=== PATIENT | female | born 1990 | race Caucasian/White ===

== ENCOUNTER 2016-11-04 21:27 | Emergency (ER) | payer SELFPAY ==
[~2016-11-04] VITALS: Wt 83.0 kg
[~2016-11-04 21:27] MED LIST: NAPR-260 PO
== END 2016-11-05 02:28 | disposition left against medical advice (07) ==
LOC: WCC 21:27
DX: Z53.21 Procedure and treatment not carried out due to patient leaving prior to being seen by health care provider (principal)

== ENCOUNTER 2017-02-01 09:53 | Emergency (ER) | payer MEDICAID ==
[~2017-02-01] VITALS: Wt 85.0 kg
[2017-02-01] MEDS ORDERED: KETOROLAC 30 MG INJ IV STA (10:33)
[2017-02-01] MEDS ORDERED: FAMOTIDINE 20 MG TAB PO STA (10:33)
[2017-02-01] MEDS ORDERED: ONDANSETRON 4 MG INJ IV STA (10:33)
[2017-02-01] MEDS ORDERED: SOD CHLORIDE 0.9% 1,000 ML IV STA (10:33)
[2017-02-01 11:08] LABS: BASOPHILS % 0.3 % (0.0-2.0); EOSINOPHILS # 0.1 10^3/ul (0.0-0.5); EOSINOPHILS % 0.6 % (0.0-7.0); HEMATOCRIT 37.1 % (37.0-47.0); HEMOGLOBIN 12.3 g/dl (12.0-16.0); LYMPHOCYTES # 2.6 10^3/ul (0.8-2.9); LYMPHOCYTES % 33.9 % (15.0-51.0); MEAN CORPUSCULAR HEMOGLOBIN 27.5 pg (29.0-33.0); MEAN CORPUSCULAR HGB CONC 33.2 g/dl (32.0-37.0); MEAN PLATELET VOLUME 12.3 fl (7.4-10.4); MONOCYTE # 0.5 10^3/ul (0.3-0.9); MONOCYTES % 6.9 % (0.0-11.0); NEUTROPHILS % 58.2 % (39.0-77.0); PLATELET COUNT 233 10^3/UL (140-415); RED BLOOD COUNT 4.47 10^6/ul (4.20-5.40); RED CELL DISTRIBUTION WIDTH 14.3 % (11.5-14.5); WHITE BLOOD COUNT 7.7 10^3/ul (4.8-10.8)
[2017-02-01 11:24] LABS: ALBUMIN/GLOBULIN RATIO 1.35; BILIRUBIN,INDIRECT 0.4 mg/dl (0-1.1); BILIRUBIN,TOTAL 0.4 mg/dl (0.2-1.3); CREATININE 0.6 mg/dl (0.44-1.00); POTASSIUM 3.7 mmol/L (3.5-5.1)
[2017-02-01 11:26] LABS: ADD UMIC NO; UR ASCORBIC ACID NEGATIVE (NEGATIVE); UR BILIRUBIN (Dip) NEGATIVE (NEGATIVE); UR BLOOD (Dip) NEGATIVE (NEGATIVE); UR CLARITY SLIGHTLY CLOUDY (CLEAR); UR COLOR YELLOW (YELLOW); UR GLUCOSE (Dip) NEGATIVE (NEGATIVE); UR KETONES (Dip) NEGATIVE (NEGATIVE); UR LEUKOCYTE ESTERASE (Dip) NEGATIVE Leu/ul (NEGATIVE); UR MUCUS FEW /HPF (NONE SEEN); UR NITRITE (Dip) NEGATIVE (NEGATIVE); UR RBC 0 /HPF (0-5); UR SPECIFIC GRAVITY (Dip) 1.027 (1.003-1.030); UR SQUAMOUS EPITHELIAL CELL MODERATE /HPF (FEW); UR TOTAL PROTEIN (Dip) NEGATIVE (NEGATIVE); UR UROBILINOGEN (Dip) NEGATIVE (NEGATIVE)
[2017-02-01] MEDS ORDERED: morphine 4 MG/ML VIAL IV STA (11:35)
--- NOTE | 2017-02-01 11:52 | RADRPT ---
PROCEDURE: CT Abdomen and Pelvis without contrast CLINICAL INDICATION: Abdominal pain TECHNIQUE: Transaxial images were obtained through the abdomen and pelvis on a multi-slice scanner without the intravenous contrast administration. No oral contrast had previously been given. Sagit hazel and coronal re-formations were subsequently reconstructed. One or more of the following dose reduction techniques were used: - Automated exposure control. - Adjustment of the mA and/or kV according to patient size. - Use of iterative reconstruction technique. Radiation dose: CTDIvol = 47.47 mGy; DLP = 671.18 mGy-cm. COMPARISON: Comparison previous pelvic sonogram done earlier on the same date. The previous sonogram demonstrated a 1.8 cm left corpus luteum cyst and mild thickening of the endom etrial cavity to 1.3 cm. FINDINGS: Lung bases: The visualized lung bases appear unremarkable. Liver: Normal in size and in attenuation. There is no focal lesion. Gallbladder: The wall is not thickened. No radiopaque stones are identified. Bile ducts: The intra and extrahepatic bile ducts are normal in caliber. Pancreas: Appears normal with no mass or inflammation evident. Spleen: Normal in size with no focal lesion. Adrenals: Normal with no mass identified. Kidneys, ureters and bladder: The kidneys are normal in size and there is no mass, pathological calc ification, or hydronephrosis evident. There is no perinephric stranding. The ureters are normal in c aliber and no ureteroliths are identified. The bladder is poorly distended. Reproductive organs: Unremarkable. Stomach and bowel: The stomach and bowel appear unremarkable without evidence of bowel obstruction o r inflammation. Appendix: The vermiform appendix is mildly prominent measuring 7 mm in cross diameter, but there is no significant stranding in the adjacent fat. Peritoneum: No free intraperitoneal fluid or air is identified. Aorta: Normal in caliber with no aneurysmal dilatation. IVC: Unremarkable. Lymph nodes: A few small shotty with retroperitoneal nodes are evident. Osseous structures: The osseous elements appear intact. IMPRESSION: 1. The vermiform appendix is mildly prominent measuring 7 mm in diameter. There is no significant stranding in the adjacent fat. Clinical correlation is indicated to distinguish between a noninflam ed slightly prominent vermiform appendix versus early appendicitis. 2. There is no evidence of bowel obstruction or inflammation and there is no free intraperitoneal f luid or air. 3. Otherwise, unremarkable non-enhanced CT scan of the abdomen and pelvis. Findings of mildly prominent vermiform appendix without definite inflammation were telephoned by Delmy Morales MD to AMIRA Weston on 02/01/2017 and 1143 hours. Physician Ren Date Time Electronically viewed and signed by Brittany Morales Physician on 02/01/2017 11:51 RH/
[2017-02-01 11:53] LABS: ALBUMIN 4.6 g/dl (3.3-4.9)
--- NOTE | 2017-02-01 11:58 | RADRPT ---
PROCEDURE: US Pelvis Non-OB CLINICAL INDICATION: Left-sided pelvic pain TECHNIQUE: Images were taken during real time trans pelvic and endovaginal interrogation. Color-fl ow and Doppler interrogation of the ovaries was performed. COMPARISON: None FINDINGS: Uterus: appears normal in size measuring 7.4 cm in sagittal diameter and 4.8 x 4.2 cm in cross diam eter.. The endometrial stripe measures 1.3 cm. Ovaries: The right ovary measures 3.1 x 1.7 x 1.4 cm and appears unremarkable. The left ovary measures 3.6 x 1.9 x 1.8 cm and a 1.8 cm in diameter corpus luteum cyst is seen withi n the left ovary. Each ovary demonstrates normal vascular flow on Doppler. Adnexa: No adnexal mass is identified. Free intraperitoneal fluid: None visualized. IMPRESSION: 1. Normal sized uterus with a slightly thickened 1.3 cm endometrial stripe. 2. 1.8 cm left ovarian corpus luteum cyst. The right ovary appeared normal and normal vascular cande w was demonstrated in each ovary. 3. No adnexal mass or free fluid is identified. Findings were telephoned by Gio Morales MD to AMIRA Weston on 02/01/2017 at 11:40 hour. Physician Ren Date Time Electronically viewed and signed by Physician Ren on 02/01/2017 11:58 /
[2017-02-01] MEDS ORDERED: ONDA-43 PO (12:31)
[2017-02-01] MEDS ORDERED: DICY10CA60 PO (12:32)
[2017-02-01] MEDS ORDERED: HYDR-906 PO (12:32)
[2017-02-01 12:46] VITALS: BP 127/80; PULSE 78; RESP 20; TEMP 98.3
--- NOTE | 2017-02-01 12:47 | ERD ---
ER Documentation Chief Complaint Date/Time DATE: 02/01/17 TIME: 12:39 Chief Complaint ABD/BACK PAIN, WORSE ON LEFT SIDE, N/V HPI This is a 26-year-old female presents to the ER with a 2 week history of left lower quadrant pain that radiates into the left side of her pelvis. Patient developed nausea and nonbilious nonbloody vomiting this morning. Patient is now complaining of epigastric pain as well. Epigastric pain is burning in quality and she feels burning sensation in her throat. Patient states that when this all started as she was constipated, however she began to drink a lot of water in her bowel movements improved. She does not have any diarrhea. She does not have any fevers or chills. Patient states that whenever she pushes down her left side the pain does radiate to her right side. Patient denies any urinary frequency or dysuria. She denies any hematuria. She denies any vaginal discharge. Patient denies drinking or smoking. ROS 12 point review of systems was done, all negative except per HPI. Medications Home Meds Active Scripts Hydrocodone/Acetaminophen (Beth[place] 5-325 Tablet) 1 Each Tablet, 1 TAB PO Q6H Y for PAIN, #15 TAB Prov:JUAN RUIZ 02/01/17 Dicyclomine Hcl* (Bentyl*) 10 Mg Capsule, 10 MG PO QID for 5 Days, CAP Prov:JUAN RUIZ 02/01/17 Ondansetron Hcl* (Zofran*) 4 Mg Tab, 4 MG PO Q4H Y for NAUSEA AND OR VOMITING, # 15 TAB Prov:JUAN RUIZ 02/01/17 Naproxen* (Naprosyn*) 500 Mg Tablet, 500 MG PO BID Y for PAIN AND/OR INFLAMMATION, #30 TAB Prov:RYAN YOUNG PA-C 04/20/16 Allergies Allergies: Coded Allergies: No Known Allergy (Verified , 04/20/16) PMhx/Soc Medical and Surgical Hx: pt denies Surgical Hx History of Surgery: No Anesthesia Reaction: No Hx Neurological Disorder: No Hx Respiratory Disorders: No Hx Cardiac Disorders: Yes (htn) Hx Psychiatric Problems: No Hx Miscellaneous Medical Probl: No Hx Alcohol Use: No Hx Substance Use: No Hx Tobacco Use: No Smoking Status: Never smoker Physical Exam Vitals Vital Signs Date Time Temp Pulse Resp B/P Pulse Ox O2 Delivery O2 Flow Rate FiO2 02/01/17 09:56 97.6 82 17 134/90 99 Physical Exam GENERAL: The patient is well developed and appropriate for usual state of health , in no apparent distress. HEENT: Atraumatic. CHEST: Clear to auscultation bilaterally. There are no rales, wheezes or rhonchi. HEART: Regular rate and rhythm. No murmurs, clicks, rubs or gallops. ABDOMEN: Soft and nondistended, patient is tender to palpation in the left lower quadrant, epigastric area, right upper quadrant, and has referred pain to the right side when pushing down on the left side. Good bowel sounds. No rebound or guarding. No gross peritonitis. No gross organomegaly or masses. No Gallegos sign or McBurney point tenderness. BACK: No midline or flank tenderness. NEURO: Alert and oriented. Result Diagram: 02/01/17 1040 02/01/17 1040 Results 24 hrs Laboratory Tests Test 02/01/17 10:30 02/01/17 10:40 Urine Color YELLOW Urine Clarity SLIGHTLY CLOUDY Urine pH 5.0 Urine Specific [place] 1.027 Urine Ketones NEGATIVEmg/dL Urine Nitrite NEGATIVEmg/dL Urine Bilirubin NEGATIVEmg/dL Urine Urobilinogen NEGATIVEmg/dL Urine Leukocyte Esterase NEGATIVELeu/ul Urine Microscopic RBC 0/HPF Urine Microscopic WBC 4/HPF Urine Squamous Epithelial Cells MODERATE/HPF Urine Mucus FEW/HPF Urine Hemoglobin NEGATIVEmg/dL Urine Glucose NEGATIVEmg/dL Urine Total Protein NEGATIVEmg/dl White Blood Count 7.710^3/ul Red Blood Count 4.4710^6/ul Hemoglobin 12.3g/dl Hematocrit 37.1% Mean Corpuscular Volume 83.0fl Mean Corpuscular Hemoglobin 27.5pg Mean Corpuscular Hemoglobin Concent 33.2g/dl Red Cell Distribution Width 14.3% Platelet Count 86055^3/UL Mean Platelet Volume 12.3fl Neutrophils % 58.2% Lymphocytes % 33.9% Monocytes % 6.9% Eosinophils % 0.6% Basophils % 0.3% Nucleated Red Blood Cells % 0.0/100WBC Neutrophils # (Manual) 510^3/ul Lymphocytes # 2.610^3/ul Monocytes # 0.510^3/ul Eosinophils # 0.110^3/ul Basophils # 0.010^3/ul Nucleated Red Blood Cells # 0.010^3/ul Sodium Level 139mmol/L Potassium Level 3.7mmol/L Chloride Level 101mmol/L Carbon Dioxide Level 26mmol/L Anion Gap 16 Blood Urea Nitrogen 14mg/dl Creatinine 0.60mg/dl Glucose Level 89mg/dl Calcium Level 9.0mg/dl Total Bilirubin 0.4mg/dl Direct Bilirubin 0.00mg/dl Indirect Bilirubin 0.4mg/dl Aspartate Amino Transf (AST/SGOT) 20IU/L Alanine Aminotransferase (ALT/SGPT) 30IU/L Alkaline Phosphatase 89IU/L Total Protein 8.0g/dl Albumin 4.6g/dl Globulin 3.40g/dl Albumin/Globulin Ratio 1.35 Lipase 47U/L Current Medications Medications (Trade) Dose Ordered Sig/Lyric Route PRN Reason Start Time Stop Time Status Last Admin Dose Admin Sodium Chloride (NS) 1,000 ml @ 1,000 mls/hr Q1H STAT IV 02/01/17 10:33 02/01/17 11:32 DC 02/01/17 11:00 Ondansetron HCl (Zofran Inj) 4 mg ONCE STAT IV 02/01/17 10:33 02/01/17 10:35 DC 02/01/17 11:00 Famotidine (Pepcid) 20 mg ONCE STAT PO 02/01/17 10:33 02/01/17 10:35 DC 02/01/17 11:01 Ketorolac Tromethamine (Toradol) 30 mg ONCE STAT IV 02/01/17 10:33 02/01/17 10:35 DC 02/01/17 11:00 Morphine Sulfate (morphine) 4 mg ONCE STAT IV 02/01/17 11:35 02/01/17 11:36 DC 02/01/17 11:59 Procedures/MDM Differential diagnosis includes but is not limited to appendicitis, hernia, UTI , constipation, ectopic , ovarian torsion, PID, Mittelschmerz, fibroid , diverticulitis, intra-abdominal abscess, tubo-ovarian abscess. This is a 26- year-old female presents to the ER with generalized abdominal pain mostly in the left lower quadrant and epigastric area. Patient was examined by myself and by my supervising physician Dr. Scott, as radiologist did mention a slightly inflamed appendix. Patient is extremely well-appearing and does not have right lower quadrant pain and physical examination. She is afebrile and does not have any evidence of leukocytosis. Patient will be sent home with pain control and Zofran. She was advised to return to ER in 24 hours for reexamination or sooner if symptoms worsen. My supervising physician Dr. Scott guided my medical decision making and agrees with my medical decision making. I shared my medical decision making with the patient she understands and agrees with plan. Departure Diagnosis: Primary Impression: Abdominal pain Condition: Stable Patient Instructions: Abdominal Pain Additional Instructions: Regrese a estas instalaciones MAANA para repetirle el examen.Regrese antes si hendrix condicin se empeora. JUAN RUIZ Feb 01, 2017 12:47
== END 2017-02-01 12:47 | disposition home or self-care (01) ==
LOC: FTE 09:53
DX: R10.32 Left lower quadrant pain (principal); I10 Essential (primary) hypertension; R11.2 Nausea with vomiting, unspecified; R10.2 Pelvic and perineal pain
CPT/HCPCS: 36415; 74176; 76830; 76856; 80053; 81001; 83690; 85025; 96374; 96375; J1885; J2270; J2405; J7030; Z7502; Z7610; 81003

== ENCOUNTER 2017-02-02 12:29 | Emergency (ER) | payer MEDICAID ==
[~2017-02-02] VITALS: Ht 165.1 cm; Wt 84.0 kg
[~2017-02-02 12:29] MED LIST changes: +DICY10CA60 PO; +HYDR-906 PO; +ONDA-43 PO
[2017-02-02 12:35] VITALS: Ht 165.1 cm; Wt 84.0 kg
[2017-02-02] MEDS ORDERED: KETOROLAC 30 MG INJ IV STA (13:24)
[2017-02-02] MEDS ORDERED: ONDANSETRON 4 MG INJ IV STA (13:24)
--- NOTE | 2017-02-02 13:24 | ERD ---
ER Documentation Chief Complaint Date/Time DATE: 02/02/17 TIME: 13:15 Chief Complaint rlq abdominal pain,unable to have bm for 2 days, was here yesterday r/o api (GEENA HAYES) Chief Complaint This 26-year-old female presents to emergency department for reevaluation of right abdominal pain. Patient was seen and treated here yesterday for rule out appendicitis instructed to return to emergency department for repeat examination if symptoms continue after 8 hours. (MOE MA) HPI 26-year-old female presents emergency department for right lower abdominal pain. Was here yesterday for the same symptoms, CT scan without contrast was done, pelvic ultrasound was done, was discharged home with Zachary Crowder Norco. Patient stated that her symptoms is not relieved by his medications. Vomited 6 times with greenish vomitus for the past 24 hours. Last bowel movement was 2 days ago. Denies headache, loss of consciousness, dizziness, blurry vision, changes in vision, photophobia, facial pain, ear pain, throat pain, difficulty swallowing, neck pain, shoulder pain, chest pain, cough, hemoptysis, back pain, loss of appetite, hematochezia, diarrhea, constipation, urinary symptoms, , the possibility of being , bladder and bowel incontinences, extremity weakness, extremity tenderness, numbness or tingling sensation, difficulty walking, recent travel, recent exposure to illness, recent antibiotic use in the last 3 months, fever, chills. No known allergies. No past medical history. No surgical history. Medications: As stated above. Social: Not working this time. Denies smoking, use of alcohol, use of illegal drugs. LMP: January 08, 2017. A0. (GEENA HAYES) ROS All systems reviewed and are negative except as per history of present illness. (GEENA HAYES) atient Name: Aileen Álvarez Unit Number: [id number] Date of : 1990 Patient Status: Registered Emergency Room Attending Doctor: Bacilio Scott DO ER Documentation ER Documentation Chief Complaint Date/Time DATE: 02/02/17 TIME: 13:15 Chief Complaint rlq abdominal pain,unable to have bm for 2 days, was here yesterday r/o api HPI 26-year-old female presents emergency department for right lower abdominal pain. Was here yesterday for the same symptoms, CT scan without contrast was done, pelvic ultrasound was done, was discharged home with Zofran, Bentyl, [place]. Patient stated that her symptoms is not relieved by his medications. Vomited 6 times with greenish vomitus for the past 24 hours. Last bowel movement was 2 days ago. Denies headache, loss of consciousness, dizziness, blurry vision, changes in vision, photophobia, facial pain, ear pain, throat pain, difficulty swallowing, neck pain, shoulder pain, chest pain, cough, hemoptysis, back pain, loss of appetite, hematochezia, diarrhea, constipation, urinary symptoms, , the possibility of being , bladder and bowel incontinences, extremity weakness, extremity tenderness, numbness or tingling sensation, difficulty walking, recent travel, recent exposure to illness, recent antibiotic use in the last 3 months, fever, chills. No known allergies. No past medical history. No surgical history. Medications: As stated above. Social: Not working this time. Denies smoking, use of alcohol, use of illegal drugs. LMP: January 08, 2017. A0. ROS All systems reviewed and are negative except as per history of present illness. Medications Home Meds Active Scripts Hydrocodone/Acetaminophen ([place] 5-325 Tablet) 1 Each Tablet, 1 TAB PO Q6H Y for PAIN, #15 TAB Prov:SARAJUAN VERA C 02/01/17 Dicyclomine Hcl* (Bentyl*) 10 Mg Capsule, 10 MG PO QID for 5 Days, CAP Prov:SARAJUAN C 02/01/17 Ondansetron Hcl* (Zofran*) 4 Mg Tab, 4 MG PO Q4H Y for NAUSEA AND OR VOMITING, # 15 TAB Prov:SARAJUAN C 02/01/17 Naproxen* (Naprosyn*) 500 Mg Tablet, 500 MG PO BID Y for PAIN AND/OR INFLAMMATION, #30 TAB Prov:RYAN YOUNG PA-C 04/20/16 Allergies Allergies: Coded Allergies: No Known Allergy (Verified , 04/20/16) PMhx/Soc History of Surgery: No Anesthesia Reaction: No Hx Neurological Disorder: No Hx Respiratory Disorders: No Hx Cardiac Disorders: Yes (HTN) Hx Psychiatric Problems: No Hx Miscellaneous Medical Probl: No Hx Alcohol Use: No Hx Substance Use: No Hx Tobacco Use: No Smoking Status: Never smoker Physical Exam Vitals Vital Signs Date Time Temp Pulse Resp B/P Pulse Ox O2 Delivery O2 Flow Rate FiO2 02/02/17 12:35 98.7 100 18 152/96 99 Physical Exam CONSTITUTIONAL: Well-appearing; well-nourished; in no apparent distress. HEAD: Normocephalic; atraumatic. EYES: Conjunctiva clear, sclera non-icteric, EOM intact. PERRL Ears: Hearing intact. EACs clear, TMs non-bulging, non-inflamed, translucent & mobile, ossicles normal appearance, No obstructions, no erythema, no discharges Nose: No obstructions. No polyps. No external lesions. Mucosa non-inflamed. No external lesions, septum and turbinates normal. No rhinorrhea. No discharges. Frontal sinus is non-tender to palpation. Maxillary sinus is non-tender to palpation. MOUTH: Moist mucous membranes, no lesion, no obstructions, no vesicles, no thrush, patent airway Throat: Uvula in midline. Right tonsil is +1 with no erythema, no exudate. Left tonsil is +1 with no erythema, no exudate. Tolerating secretions well. Good gag reflex. Patent airway. Neck: Supple, without lesions, bruits, or adenopathy. No mass. Thyroid non- enlarged and non-tender to palpation. CHEST: Symmetrical chest. Respirations even and not labored. No retractions noted. CARDIOVASCULAR: Normal S1, S2. RRR. No murmurs, gallops. RESPIRATORY: Normal chest excursion with respiration; breath sounds clear and equal bilaterally; no wheezes, rhonchi, or rales. Breathing even and unlabored. Speaking in clear, full, and complete sentences w/ ease. ABDOMEN: Normal bowel sounds normal. Soft, round, non-distended, non-guarding, no rebound, no organomegaly, no masses, no pulsating abdominal mass. Has right lower abdominal tenderness on light and deep palpation. Positive and psoas sign. Negative on Rovsing sign. Positive Anay sign. Unable to jump due to right-sided abdominal pain. No hernia. No peritoneal signs. : No CVA tenderness. BACK: Symmetrical shoulder. Spine is midline without deformity, tenderness. No evidence of trauma or deformity. PELVIS: Stable pelvis. No evidence of trauma or deformity. MUSCULOSKELETAL: Normal gait and station. No misalignment, asymmetry, crepitation, defects, tenderness, masses, effusions, decreased range of motion, instability, atrophy or abnormal strength or tone in the head, neck, spine, ribs , pelvis or extremities. No calf tenderness. NEUROVASCULAR: Distal pulses are present. Pedal pulse are present, equal, and normal. Capillary refills are < 2 seconds. NEUROLOGIC: Alert and oriented x4. Speaks full and clear sentences. Cranial Nerves II-XII normal. Sensation to pain, touch, and proprioception normal. Grossly unremarkable. No neurologic deficits. Romberg test is negative. PSYCHOLOGICAL: The patients mood and manner are appropriate. No hallucinations , delusions. Not SI. Not HI. Has the capacity to decide for self SKIN: Normal for age and ethnicity; warm; dry; good turgor; no apparent lesions or exudates. No rashes, hives, discoloration. Intact. Result Diagram: 02/02/17 1445 02/02/17 1445 Results 24 hrs Laboratory Tests Test 02/02/17 14:45 White Blood Count 6.510^3/ul Red Blood Count 4.3810^6/ul Hemoglobin 11.7g/dl Hematocrit 36.6% Mean Corpuscular Volume 83.6fl Mean Corpuscular Hemoglobin 26.7pg Mean Corpuscular Hemoglobin Concent 32.0g/dl Red Cell Distribution Width 14.2% Platelet Count 81033^3/UL Mean Platelet Volume 11.8fl Neutrophils % 62.2% Lymphocytes % 29.9% Monocytes % 6.8% Eosinophils % 0.6% Basophils % 0.2% Nucleated Red Blood Cells % 0.0/100WBC Neutrophils # (Manual) 410^3/ul Lymphocytes # 1.910^3/ul Monocytes # 0.410^3/ul Eosinophils # 0.010^3/ul Basophils # 0.010^3/ul Nucleated Red Blood Cells # 0.010^3/ul Prothrombin Time 13.3Sec Prothrombin Time Ratio 1.0 INR International Normalized Ratio 1.01 Activated Partial Thromboplast Time 30.5Sec Sodium Level 139mmol/L Potassium Level 3.6mmol/L Chloride Level 102mmol/L Carbon Dioxide Level 26mmol/L Anion Gap 15 Blood Urea Nitrogen 8mg/dl Creatinine 0.64mg/dl Glucose Level 79mg/dl Calcium Level 8.9mg/dl Total Bilirubin 0.6mg/dl Direct Bilirubin 0.00mg/dl Indirect Bilirubin 0.6mg/dl Aspartate Amino Transf (AST/SGOT) 21IU/L Alanine Aminotransferase (ALT/SGPT) 29IU/L Alkaline Phosphatase 88IU/L Total Protein 7.7g/dl Albumin 4.5g/dl Globulin 3.20g/dl Albumin/Globulin Ratio 1.40 Amylase Level 60U/L Lipase 38U/L Serum HCG, Qualitative NEGATIVE Current Medications Medications (Trade) Dose Ordered Sig/Lyric Route PRN Reason Start Time Stop Time Status Last Admin Dose Admin Ondansetron HCl (Zofran Inj) 4 mg ONCE STAT IV 02/02/17 13:24 02/02/17 13:29 DC 02/02/17 14:52 Ketorolac Tromethamine 30 mg 30 mg ONCE STAT IV 02/02/17 13:24 02/02/17 13:29 DC 02/02/17 14:52 Sodium Chloride (NS) 500 ml @ 500 mls/hr Q1H ONCE IV 02/02/17 13:30 02/02/17 14:29 DC 02/02/17 14:53 Morphine Sulfate (morphine) 2 mg ONCE ONCE IV 02/02/17 16:00 02/02/17 16:01 DC 02/02/17 16:41 Procedures/MDM Examination: Please see physical examination. Disease process, medical treatment was explained to the patient and family member. They verbalized understanding and agreed with the diagnostic tests, medical treatment, and follow-up care. Radiology: CT of the abdomen and pelvis with IV contrast Impression: Awaiting for results Blood works: Reviewed. POC urine : Urinalysis: Awaiting for results. Treatment: IV insertion. Normal saline 5 cc bolus. Zofran 4 mg IV 1. Toradol 30 mg IV. Consultation: Case was discussed with supervising emergency room physician, Dr. Maxime Dawkins who recommends CT of the abdomen and pelvis with IV contrast and repeat blood works today. 19:36 case was discussed with supervising emergency room physician, Dr. Bacilio Scott who suggested for me to endorse this patient to Annelise Alexander NP. Dr. Bacilio Scott also stated that he will follow-up the result. Differential diagnosis: Appendicitis versus nephrolithiasis versus pyelonephritis versus pancreatitis versus cholecystitis versus liver disease versus ovarian cyst rupture versus ovarian cyst versus pelvic inflammatory disease versus urinary tract infection Medical decision makin-year-old female presents emergency department for right lower abdominal pain. Was here yesterday for the same symptoms, CT scan without contrast was done, pelvic ultrasound was done, was discharged home with Zofran, Bentyl, [place]. Patient stated that her symptoms is not relieved by his medications. Vomited 6 times with greenish vomitus for the past 24 hours. Last bowel movement was 2 days ago. Patient's complaint, patient's history about her complaint, my physical findings, diagnostic test results, reevaluation after my treatment, my discussions with my supervising physician are consistent my final diagnosis of abdominal pain. Will be followed up by Annelise ARAUJO and Dr. Scott. Departure Diagnosis: Primary Impression: Abdominal pain Condition: Stable Copies To: Copies To: GEENA HAYES Feb 02, 2017 13:24 (ANIL,MOE) Medications Home Meds Active Scripts Hydrocodone/Acetaminophen ([place] 5-325 Tablet) 1 Each Tablet, 1 TAB PO Q6H Y for PAIN, #15 TAB Prov:SARACHAGOJUAN C 02/01/17 Dicyclomine Hcl* (Bentyl*) 10 Mg Capsule, 10 MG PO QID for 5 Days, CAP Prov:SARAJUAN C 02/01/17 Ondansetron Hcl* (Zofran*) 4 Mg Tab, 4 MG PO Q4H Y for NAUSEA AND OR VOMITING, # 15 TAB Prov:SARAJUAN C 02/01/17 Naproxen* (Naprosyn*) 500 Mg Tablet, 500 MG PO BID Y for PAIN AND/OR INFLAMMATION, #30 TAB Prov:RYAN YOUNG PA-C 04/20/16 Allergies Allergies: Coded Allergies: No Known Allergy (Verified , 04/20/16) PMhx/Soc History of Surgery: No Anesthesia Reaction: No Hx Neurological Disorder: No Hx Respiratory Disorders: No Hx Cardiac Disorders: Yes (HTN) Hx Psychiatric Problems: No Hx Miscellaneous Medical Probl: No Hx Alcohol Use: No Hx Substance Use: No Hx Tobacco Use: No Smoking Status: Never smoker (PASILABAN,KLAR F) Physical Exam Vitals Vital Signs Date Time Temp Pulse Resp B/P Pulse Ox O2 Delivery O2 Flow Rate FiO2 02/02/17 12:35 98.7 100 18 152/96 99 (ANIL,MOE) Physical Exam CONSTITUTIONAL: Well-appearing; well-nourished; in no apparent distress. HEAD: Normocephalic; atraumatic. EYES: Conjunctiva clear, sclera non-icteric, EOM intact. PERRL Ears: Hearing intact. EACs clear, TMs non-bulging, non-inflamed, translucent & mobile, ossicles normal appearance, No obstructions, no erythema, no discharges Nose: No obstructions. No polyps. No external lesions. Mucosa non-inflamed. No external lesions, septum and turbinates normal. No rhinorrhea. No discharges. Frontal sinus is non-tender to palpation. Maxillary sinus is non-tender to palpation. MOUTH: Moist mucous membranes, no lesion, no obstructions, no vesicles, no thrush, patent airway Throat: Uvula in midline. Right tonsil is +1 with no erythema, no exudate. Left tonsil is +1 with no erythema, no exudate. Tolerating secretions well. Good gag reflex. Patent airway. Neck: Supple, without lesions, bruits, or adenopathy. No mass. Thyroid non- enlarged and non-tender to palpation. CHEST: Symmetrical chest. Respirations even and not labored. No retractions noted. CARDIOVASCULAR: Normal S1, S2. RRR. No murmurs, gallops. RESPIRATORY: Normal chest excursion with respiration; breath sounds clear and equal bilaterally; no wheezes, rhonchi, or rales. Breathing even and unlabored. Speaking in clear, full, and complete sentences w/ ease. ABDOMEN: Normal bowel sounds normal. Soft, round, non-distended, non-guarding, no rebound, no organomegaly, no masses, no pulsating abdominal mass. Has right lower abdominal tenderness on light and deep palpation. Positive and psoas sign. Negative on Rovsing sign. Positive Anay sign. Unable to jump due to right-sided abdominal pain. No hernia. No peritoneal signs. : No CVA tenderness. BACK: Symmetrical shoulder. Spine is midline without deformity, tenderness. No evidence of trauma or deformity. PELVIS: Stable pelvis. No evidence of trauma or deformity. MUSCULOSKELETAL: Normal gait and station. No misalignment, asymmetry, crepitation, defects, tenderness, masses, effusions, decreased range of motion, instability, atrophy or abnormal strength or tone in the head, neck, spine, ribs , pelvis or extremities. No calf tenderness. NEUROVASCULAR: Distal pulses are present. Pedal pulse are present, equal, and normal. Capillary refills are < 2 seconds. NEUROLOGIC: Alert and oriented x4. Speaks full and clear sentences. Cranial Nerves II-XII normal. Sensation to pain, touch, and proprioception normal. Grossly unremarkable. No neurologic deficits. Romberg test is negative. PSYCHOLOGICAL: The patients mood and manner are appropriate. No hallucinations , delusions. Not SI. Not HI. Has the capacity to decide for self SKIN: Normal for age and ethnicity; warm; dry; good turgor; no apparent lesions or exudates. No rashes, hives, discoloration. Intact. (GEENA HAYES) Physical Exam Physical Exam Vitals Vital Signs Date Time Temp Pulse Resp B/P Pulse Ox O2 Delivery O2 Flow Rate FiO2 02/02/17 12:35 98.7 100 18 152/96 99 Physical Exam CONSTITUTIONAL: Well-appearing; well-nourished; in no apparent distress. CHEST: Symmetrical chest. Respirations even and not labored. No retractions noted. CARDIOVASCULAR: Normal S1, S2. RRR. No murmurs, gallops. RESPIRATORY: Normal chest excursion with respiration; breath sounds clear and equal bilaterally; no wheezes, rhonchi, or rales. Breathing even and unlabored. Speaking in clear, full, and complete sentences w/ ease. ABDOMEN: Soft, non-distended, non-guarding, no rebound, no organomegaly, Has right lower abdominal tenderness on light and deep palpation. Positive McBurney 's point tenderness unable to jump due to right-sided abdominal pain. No hernia. No peritoneal signs. : No CVA tenderness. BACK: Symmetrical shoulder. Spine is midline without deformity, tenderness. No evidence of trauma or deformity. NEUROLOGIC: Alert and oriented x4. Speaks full and clear sentences. Cranial Nerves II-XII normal. Sensation to pain, touch, and proprioception normal. Grossly unremarkable. No neurologic deficits. Romberg test is negative. PSYCHOLOGICAL: The patients mood and manner are appropriate. No hallucinations , delusions. Not SI. Not HI. Has the capacity to decide for self (MOE MA) Result Diagram: 02/02/17 1445 02/02/17 1445 Results 24 hrs Laboratory Tests Test 02/02/17 14:45 White Blood Count 6.510^3/ul Red Blood Count 4.3810^6/ul Hemoglobin 11.7g/dl Hematocrit 36.6% Mean Corpuscular Volume 83.6fl Mean Corpuscular Hemoglobin 26.7pg Mean Corpuscular Hemoglobin Concent 32.0g/dl Red Cell Distribution Width 14.2% Platelet Count 59079^3/UL Mean Platelet Volume 11.8fl Neutrophils % 62.2% Lymphocytes % 29.9% Monocytes % 6.8% Eosinophils % 0.6% Basophils % 0.2% Nucleated Red Blood Cells % 0.0/100WBC Neutrophils # (Manual) 410^3/ul Lymphocytes # 1.910^3/ul Monocytes # 0.410^3/ul Eosinophils # 0.010^3/ul Basophils # 0.010^3/ul Nucleated Red Blood Cells # 0.010^3/ul Prothrombin Time 13.3Sec Prothrombin Time Ratio 1.0 INR International Normalized Ratio 1.01 Activated Partial Thromboplast Time 30.5Sec Sodium Level 139mmol/L Potassium Level 3.6mmol/L Chloride Level 102mmol/L Carbon Dioxide Level 26mmol/L Anion Gap 15 Blood Urea Nitrogen 8mg/dl Creatinine 0.64mg/dl Glucose Level 79mg/dl Calcium Level 8.9mg/dl Total Bilirubin 0.6mg/dl Direct Bilirubin 0.00mg/dl Indirect Bilirubin 0.6mg/dl Aspartate Amino Transf (AST/SGOT) 21IU/L Alanine Aminotransferase (ALT/SGPT) 29IU/L Alkaline Phosphatase 88IU/L Total Protein 7.7g/dl Albumin 4.5g/dl Globulin 3.20g/dl Albumin/Globulin Ratio 1.40 Amylase Level 60U/L Lipase 38U/L Serum HCG, Qualitative NEGATIVE Current Medications Medications (Trade) Dose Ordered Sig/Lyric Route PRN Reason Start Time Stop Time Status Last Admin Dose Admin Ondansetron HCl (Zofran Inj) 4 mg ONCE STAT IV 02/02/17 13:24 02/02/17 13:29 DC 02/02/17 14:52 Ketorolac Tromethamine 30 mg 30 mg ONCE STAT IV 02/02/17 13:24 02/02/17 13:29 DC 02/02/17 14:52 Sodium Chloride (NS) 500 ml @ 500 mls/hr Q1H ONCE IV 02/02/17 13:30 02/02/17 14:29 DC 02/02/17 14:53 Morphine Sulfate (morphine) 2 mg ONCE ONCE IV 02/02/17 16:00 02/02/17 16:01 DC 02/02/17 16:41 IV Flush 10 ml 10 ml STK-MED ONCE .ROUTE 02/02/17 21:27 02/02/17 21:28 DC 02/02/17 21:33 Sodium Chloride (NS) 100 ml @ ud STK-MED ONCE .ROUTE 02/02/17 21:27 02/02/17 21:28 DC 02/02/17 21:33 Iohexol (Omnipaque 300mg/ ml) 150 ml STK-MED ONCE .ROUTE 02/02/17 21:27 02/02/17 21:28 DC 02/02/17 21:34 Acetaminophen (Tylenol Tab) 650 mg ONCE ONCE PO 02/02/17 22:30 02/02/17 22:31 DC 02/02/17 22:22 Interpretation text CBC shows no evidence of hemorrhage or infection Chemistry shows no evidence of significant electrolyte abnormalities or renal insufficiency Lipase shows no evidence of acute pancreatitis (MOE MA) Procedures/MDM Examination: Please see physical examination. Disease process, medical treatment was explained to the patient and family member. They verbalized understanding and agreed with the diagnostic tests, medical treatment, and follow-up care. Radiology: CT of the abdomen and pelvis with IV contrast Impression: Awaiting for results Blood works: Reviewed. POC urine : Urinalysis: Awaiting for results. Treatment: IV insertion. Normal saline 5 cc bolus. Zofran 4 mg IV 1. Toradol 30 mg IV. Consultation: Case was discussed with supervising emergency room physician, Dr. Maxime Dawkins who recommends CT of the abdomen and pelvis with IV contrast and repeat blood works today. 19:36 case was discussed with supervising emergency room physician, Dr. Bacilio Scott who suggested for me to endorse this patient to Annelise Alexander NP. Dr. Bacilio Scott also stated that he will follow-up the result. Differential diagnosis: Appendicitis versus nephrolithiasis versus pyelonephritis versus pancreatitis versus cholecystitis versus liver disease versus ovarian cyst rupture versus ovarian cyst versus pelvic inflammatory disease versus urinary tract infection Medical decision makin-year-old female presents emergency department for right lower abdominal pain. Was here yesterday for the same symptoms, CT scan without contrast was done, pelvic ultrasound was done, was discharged home with Zofrmilo, Zachary, [place]. Patient stated that her symptoms is not relieved by his medications. Vomited 6 times with greenish vomitus for the past 24 hours. Last bowel movement was 2 days ago. Patient's complaint, patient's history about her complaint, my physical findings, diagnostic test results, reevaluation after my treatment, my discussions with my supervising physician are consistent my final diagnosis of abdominal pain. Will be followed up by Annelise ARAUJO and Dr. Scott. (GEENA HAYES) This 26-year-old female presents to emergency department for reevaluation of right lower quadrant pain. Patient had if equivocal testing yesterday symptoms suspicious for appendicitis. Normal CAT scan without contrast instructed to return if symptoms worsen. Patient back today for repeat evaluation. Patient has unremarkable lab testing with WBCs negative for acute infection, hemoglobin and hematocrit stable no anemia or acute blood loss. Electrolytes without acute dysfunction. Patient CAT scan with contrast demonstrates compared to prior noncontrast CT from 02/01 2017 the appendix now is normal measuring only 5.5 mm there are no findings to suggest appendicitis. Now demonstrated is a trace amount of fluid within the left adnexa and cul-de-sac complying ovarian follicles or cysts rupture from a small approximately 1 cm hypodense left ovarian lesion. Remainder of examination is unremarkable. This case discussed with supervising physician Dr. Mayers. Patient will be discharged home with Motrin, 7 [place]. Instructions to follow-up with ANESTHESIOLOGIST on Saturday. I feel the patient is stable for discharge at this time. I have discussed results , examination findings, the treatment plan with the patient and family present prior to discharge. Indications for emergent reevaluation, side effects of medication were also discussed. All questions were answered. Patient verbalizes understanding and agrees with plan of care. (MOE MA) Departure Diagnosis: Primary Impression: Ovarian cyst Laterality: left Qualified Code: N83.202 - Cyst of left ovary Condition: Good Patient Instructions: What Are Ovarian Cysts? Referrals: ANESTHESIOLOGIST REFERRAL LIST Additional Instructions: Thank you for for coming to [facility] for your care today. Please ask your nurse or provider if you have questions about your care today and do not leave until all your questions have been answered. Please use any medications given as directed and follow-up with your doctor (or the doctor you were referred to) in the next 2-3 days. If you do not have a primary care doctor you [place] [facility] [place] You may also use motrin and tylenol as needed for fever and/or pain unless instructed otherwise by your provider or nurse. Indications for more urgent follow-up have been discussed, but you may return to the Emergency Department at ANY time for any worrisome or worsening symptoms. If you have abdominal pain, please know that no test or exam you received is perfect and you should follow up within 8 hours for continued pain. If you had any imaging studies today, such as an X-Ray or CT Scan, these studies will be reviewed later by a radiologist. You will be called if there are important findings that were not identified today, so make sure the contact information you provided at registration is correct. If you received any narcotic pain control medicine today, such as Vicodin, Morphine or Dilaudid, your coordination and judgment may be affected for a number of hours. Please do not drive or operate heavy machinery, and you may want someone to assist you at home. If you were given a prescription for narcotic medication, be aware that it is very addictive- use sparingly and only if necessary. GEENA HAYES Feb 02, 2017 13:24 MOE MA Feb 02, 2017 23:57
[2017-02-02] MEDS ORDERED: SOD CHLORIDE 0.9% 500 ML IV ONE (13:30)
[2017-02-02 14:59] LABS: BASOPHILS % 0.2 % (0.0-2.0); EOSINOPHILS % 0.6 % (0.0-7.0); HEMATOCRIT 36.6 % (37.0-47.0); HEMOGLOBIN 11.7 g/dl (12.0-16.0); LYMPHOCYTES # 1.9 10^3/ul (0.8-2.9); LYMPHOCYTES % 29.9 % (15.0-51.0); MEAN CORPUSCULAR HEMOGLOBIN 26.7 pg (29.0-33.0); MEAN CORPUSCULAR VOLUME 83.6 fl (82.0-101.0); MEAN PLATELET VOLUME 11.8 fl (7.4-10.4); MONOCYTE # 0.4 10^3/ul (0.3-0.9); MONOCYTES % 6.8 % (0.0-11.0); NEUTROPHILS % 62.2 % (39.0-77.0); PLATELET COUNT 215 10^3/UL (140-415); RED BLOOD COUNT 4.38 10^6/ul (4.20-5.40); RED CELL DISTRIBUTION WIDTH 14.2 % (11.5-14.5); WHITE BLOOD COUNT 6.5 10^3/ul (4.8-10.8)
[2017-02-02 15:19] LABS: INR 1.01; PROTIME 13.3 Sec (12.2-14.2)
[2017-02-02 15:20] LABS: PARTIAL THROMBOPLASTIN TIME 30.5 Sec (25.0-35.0)
[2017-02-02 15:24] LABS: ALBUMIN 4.5 g/dl (3.3-4.9); ALBUMIN/GLOBULIN RATIO 1.4; BILIRUBIN,INDIRECT 0.6 mg/dl (0-1.1); BILIRUBIN,TOTAL 0.6 mg/dl (0.2-1.3); CALCIUM 8.9 mg/dl (8.4-10.2); CREATININE 0.64 mg/dl (0.44-1.00); POTASSIUM 3.6 mmol/L (3.5-5.1); TOTAL PROTEIN 7.7 g/dl (6.1-8.1)
[2017-02-02] MEDS ORDERED: morphine 2 MG INJ IV ONE (16:00)
[2017-02-02] MEDS ORDERED: IOHEXOL 300MG/ML 150 ML BTL ONE (21:27)
[2017-02-02] MEDS ORDERED: SOD CHLORIDE 0.9% 100 ML ONE (21:27)
--- NOTE | 2017-02-02 22:29 | RADRPT ---
PROCEDURE: CT abdomen and pelvis with contrast. CLINICAL INDICATION: Abdominal pain, possible appendicitis. TECHNIQUE: CT scan of the abdomen and pelvis with contrast was performed. Coronal and sagittal im ages were also reformatted. 100 cc Omnipaque-300 intravenous contrast was administered without comp lication. Total exam CTDIvol = 15.73 mGy and DLP = 899.74 mGy-cm. COMPARISON: Noncontrast CT 02/01/2017 FINDINGS: Visualized lower thorax: The lung bases are clear. There is no evidence for pleural effusion. Liver, gallbladder, pancreas and spleen: Normal hepatic contour, attenuation in size. There is no evidence for liver mass or ductal dilatation. The gallbladder is unremarkable. No common bile duct dilatation is evident. The pancreas is normal. The spleen is normal, not enlarged. Adrenal glands and genitourinary system: The adrenal glands are normal bilaterally. The kidneys ar e normal in size, contour and attenuation with no evidence for masses, calculi or hydronephrosis. Sy mmetric enhancement of the kidneys is present without evidence of pyelonephritis . The ureters are unremarkable. The urinary bladder shows no abnormality. The uterus is unremarkable. There is a tr lissy amount of free fluid within the left adnexa. A small hypodense approximately 1 x 0.9 cm left ov vaibhav/adnexal lesion likely reflects a follicle or cyst with possible internal hemorrhage or debris (series 3 image 134) Gastrointestinal system: The stomach, small bowel and large intestine are normal in caliber. There is no evidence of obstruction, ileus or inflammation. The appendix is normal in diameter measuring 5.5 mm and there are no findings of inflammatory stranding or appendicitis. A normal amount of feca l debris is present within the colon and there is no wall thickening to suggest colitis. Peritoneum, retroperitoneum, vessels and lymph nodes: The abdominal aorta is normal in caliber. No pneumoperitoneum or abscess is present. Inferior vena cava is normal in caliber. There is no evid ence for adenopathy. A trace amount of dependent free fluid within the pelvic cul-de-sac is noted. There is no upper abdominal ascites. Osseous structures and musculoskeletal system: There is no evidence for acute osseous abnormality o r muscular pathology. No subcutaneous abnormalities are present. RPTAT:HJJR IMPRESSION: 1. Compared to the prior noncontrast CT of 02/01/2017, the appendix is now normal measuring only 5. 5 mm and there are no findings to suggest acute appendicitis. 2. Now demonstrated is a trace amount of fluid within the left adnexa and cul-de-sac implying ovari an follicle or cyst rupture from a small approximately 1 cm hypodense left ovarian lesion. 3. Remainder of the examination is unremarkable. Physician Xu Date Time Electronically viewed and signed by Jp Tabares Physician on 02/02/2017 22:29 JR/
[2017-02-02] MEDS ORDERED: ACETAMINOPHEN 325 MG TAB PO ONE (22:30)
[2017-02-03] MEDS ORDERED: IBUP400T22 PO
[2017-02-03] MEDS ORDERED: HYDR-906 PO (00:01)
[2017-02-03 00:36] VITALS: BP 133/70; PULSE 73; RESP 16; TEMP 97.1
== END 2017-02-03 00:38 | disposition home or self-care (01) ==
LOC: FTE 12:29
DX: N83.202 Unspecified ovarian cyst, left side (principal); I10 Essential (primary) hypertension
CPT/HCPCS: 36415; 74177; 80053; 82150; 83690; 84703; 85025; 85610; 85730; 87086; 96374; 96375; J1885; J2270; J2405; J7040; Q9967; Z7502; Z7610

== ENCOUNTER 2017-04-28 22:24 | Emergency (ER) | payer MEDICAID ==
[~2017-04-28] VITALS: Ht 157.5 cm; Wt 86.0 kg
[~2017-04-28 22:24] MED LIST changes: +IBUP400T22 PO
[2017-04-28 22:37] VITALS: Ht 157.5 cm; Wt 86.0 kg
[2017-04-28] MEDS ORDERED: ONDANSETRON 4 MG INJ IV STA (23:39)
[2017-04-28] MEDS ORDERED: morphine 4 MG/ML VIAL IV STA (23:39)
[2017-04-29 00:30] LABS: BASOPHILS % 0.2 % (0.0-2.0); EOSINOPHILS # 0.1 10^3/ul (0.0-0.5); HEMATOCRIT 37.3 % (37.0-47.0); HEMOGLOBIN 11.9 g/dl (12.0-16.0); LYMPHOCYTES # 2.7 10^3/ul (0.8-2.9); LYMPHOCYTES % 32.5 % (15.0-51.0); MEAN CORPUSCULAR HEMOGLOBIN 26.8 pg (29.0-33.0); MEAN CORPUSCULAR HGB CONC 31.9 g/dl (32.0-37.0); MEAN PLATELET VOLUME 11.7 fl (7.4-10.4); MONOCYTE # 0.6 10^3/ul (0.3-0.9); MONOCYTES % 6.8 % (0.0-11.0); NEUTROPHIL # 4.9 10^3/ul (1.6-7.5); NEUTROPHILS % 59.3 % (39.0-77.0); PLATELET COUNT 228 10^3/UL (140-415); RED BLOOD COUNT 4.44 10^6/ul (4.20-5.40); RED CELL DISTRIBUTION WIDTH 14.1 % (11.5-14.5); WHITE BLOOD COUNT 8.2 10^3/ul (4.8-10.8)
[2017-04-29 00:39] LABS: ADD UMIC NO; UR ASCORBIC ACID NEGATIVE (NEGATIVE); UR BILIRUBIN (Dip) NEGATIVE (NEGATIVE); UR BLOOD (Dip) NEGATIVE (NEGATIVE); UR CLARITY CLEAR (CLEAR); UR COLOR YELLOW (YELLOW); UR GLUCOSE (Dip) NEGATIVE (NEGATIVE); UR KETONES (Dip) NEGATIVE (NEGATIVE); UR LEUKOCYTE ESTERASE (Dip) NEGATIVE Leu/ul (NEGATIVE); UR NITRITE (Dip) NEGATIVE (NEGATIVE); UR SPECIFIC GRAVITY (Dip) 1.021 (1.003-1.030); UR TOTAL PROTEIN (Dip) NEGATIVE (NEGATIVE); UR UROBILINOGEN (Dip) NEGATIVE (NEGATIVE)
--- NOTE | 2017-04-29 00:54 | RADRPT ---
PROCEDURE: CT ABDOMEN/PELVIS WITHOUT CONTRAST CLINICAL INDICATION: 26-year-old female with abdominal pain. TECHNIQUE: The study was performed utilizing a GE [employer] VCT 64-slice CT scanner. Direct axia l sections were obtained through the abdomen and pelvis without the use of intravenous contrast mate rial. Sagittal and coronal reformations were obtained. One or more of the following dose reduction t echniques were utilized: automated exposure control, adjustment of the mA and/or kV according to pat ient's size and/or the use of iterative reconstruction technique. DICOM images are available. The im ages were reviewed on a PACS workstation. CTD/vol = 16.4 mGy; Total Exam DLP = 1021.8 mGy-cm. COMPARISON: CT abdomen/pelvis February 02, 2017. FINDINGS: The lung bases are unremarkable. There is no evidence for significant pleural effusion. The liver has a normal size and contour without focal areas of abnormal density. No intrahepatic nor extrahepa tic biliary ductal dilatation is seen. The gallbladder demonstrates no wall thickening nor perichole cystic fluid. No biliary stones are evident. The pancreas is without areas of abnormal attenuation. The spleen is identified and has a normal size without abnormal density. The adrenal glands are unr emarkable. The kidneys are without abnormal density. No hydroureteronephrosis nor nephroureterolithi asis is evident. The urinary bladder contains urine. There is a minimal umbilical hernia with an ope rosenda of approximately 4 x 3 mm containing fat. The stomach is filled with particular material. There is retained stool within the ascending and transverse colon without obstruction There is no evidenc e for bowel obstruction. The appendix is at the upper limits of normal measuring 6 mm without surrounding inflammatory changes and without significant interval change. The uterus is unremarkable . There is trace pelvic free fluid. The aortoiliac vessels are without aneurysmal dilatation. The os seous structures are intact. IMPRESSION: 1. Mild retained stool within the proximal colon without obstruction. 2. No CT evidence for appendicitis. 3. Trace pelvic free fluid. .Celso Lowe MD, Date Time Electronically viewed and signed by .Celso Lowe MD, MD on 04/29/2017 00:53 .Kurt
[2017-04-29 01:05] LABS: ALBUMIN 4.1 g/dl (3.3-4.9); ALBUMIN/GLOBULIN RATIO 1.1; BILIRUBIN,INDIRECT 0.2 mg/dl (0-1.1); BILIRUBIN,TOTAL 0.2 mg/dl (0.2-1.3); CALCIUM 9.1 mg/dl (8.4-10.2); CREATININE 0.64 mg/dl (0.44-1.00); POTASSIUM 3.7 mmol/L (3.5-5.1); TOTAL PROTEIN 7.8 g/dl (6.1-8.1)
[2017-04-29] MEDS ORDERED: KETOROLAC 30 MG INJ IV STA (01:21)
--- NOTE | 2017-04-29 01:51 | ERD ---
ER Documentation Chief Complaint Chief Complaint PELVIC PAIN RADIATING RIGHT FLANK PAIN X 3 DAYS, +N/V/DIZZY HPI This is a 26-year-old female who presents the emergency department today complaining of lower abdominal pain that started 2 days ago and got worse. States she has had some nausea and vomiting. She also has some right-sided flank pain. Denies any fevers or chills, dysuria. ROS All systems reviewed and are negative except as per history of present illness. Medications Home Meds Active Scripts Docusate Sodium* (Colace*) 100 Mg Capsule, 100 MG PO TID, #30 CAP Prov:RYAN YOUNG PA-C 04/29/17 Polyethylene Glycol* (Miralax*) 17 Gm Powd.pack, 17 GM PO DAILY, #15 Prov:RYAN YOUNG PA-C 04/29/17 Ondansetron Hcl* (Zofran*) 4 Mg Tablet, 4 MG PO Q6H for NAUSEA AND/OR VOMITING, #30 TAB Prov:RYAN YOUNGC 04/29/17 Acetaminophen* (Tylophen*) 500 Mg Capsule, 1 CAP PO Q6H Y for PAIN AND OR ELEVATED TEMP, #30 CAP Prov:RYAN YOUNG PA-C 04/29/17 Naproxen* (Naprosyn*) 500 Mg Tablet, 500 MG PO BID Y for PAIN AND/OR INFLAMMATION, #30 TAB Prov:RYAN YOUNGC 04/29/17 Hydrocodone/Acetaminophen ([place] 5-325 Tablet) 1 Each Tablet, 1 TAB PO Q6H Y for PAIN, #7 TAB Prov:ANIL,MOE 02/03/17 Ibuprofen* (Motrin*) 400 Mg Tab, 400 MG PO Q6, #30 TAB Prov:ANIL,MOE 02/03/17 Hydrocodone/Acetaminophen ([place] 5-325 Tablet) 1 Each Tablet, 1 TAB PO Q6H Y for PAIN, #15 TAB Prov:SARAJUAN VERA 02/01/17 Dicyclomine Hcl* (Bentyl*) 10 Mg Capsule, 10 MG PO QID for 5 Days, CAP Prov:JUAN RUIZ 02/01/17 Ondansetron Hcl* (Zofran*) 4 Mg Tab, 4 MG PO Q4H Y for NAUSEA AND OR VOMITING, # 15 TAB Prov:JUAN RUIZ 02/01/17 Naproxen* (Naprosyn*) 500 Mg Tablet, 500 MG PO BID Y for PAIN AND/OR INFLAMMATION, #30 TAB Prov:RYAN YOUNG PA-C 04/20/16 Allergies Allergies: Coded Allergies: No Known Allergy (Verified , 04/20/16) PMhx/Soc Medical and Surgical Hx: pt denies Surgical Hx History of Surgery: No Anesthesia Reaction: No Hx Neurological Disorder: No Hx Respiratory Disorders: No Hx Cardiac Disorders: Yes (HTN) Hx Psychiatric Problems: No Hx Miscellaneous Medical Probl: No Hx Alcohol Use: No Hx Substance Use: No Hx Tobacco Use: No Physical Exam Vitals Vital Signs Date Time Temp Pulse Resp B/P Pulse Ox O2 Delivery O2 Flow Rate FiO2 04/28/17 22:37 98.6 84 20 142/89 99 Physical Exam Const: NAD Head: Atraumatic Eyes: Normal Conjunctiva ENT: Normal External Ears, Nose and Mouth. Neck: Full range of motion..~ No meningismus. Resp: Clear to auscultation bilaterally Cardio: Regular rate and rhythm, no murmurs Abd: Soft, obese lower abdominal pain worse on the right side. non distended. Normal bowel sounds no specific tenderness at McBurney's. Skin: No petechiae or rashes Back: No midline tenderness. Right sided flank pain no CVA tenderness. Ext: No cyanosis, or edema Neur: Awake and alert Psych: Normal Mood and Affect Result Diagram: 04/28/17 0005 04/28/17 0005 Results 24 hrs Laboratory Tests Test 04/28/17 00:01 04/28/17 00:05 Urine Color YELLOW Urine Clarity CLEAR Urine pH 6.0 Urine Specific [place] 1.021 Urine Ketones NEGATIVEmg/dL Urine Nitrite NEGATIVEmg/dL Urine Bilirubin NEGATIVEmg/dL Urine Urobilinogen NEGATIVEmg/dL Urine Leukocyte Esterase NEGATIVELeu/ul Urine Hemoglobin NEGATIVEmg/dL Urine Glucose NEGATIVEmg/dL Urine Total Protein NEGATIVEmg/dl White Blood Count 8.210^3/ul Red Blood Count 4.4410^6/ul Hemoglobin 11.9g/dl Hematocrit 37.3% Mean Corpuscular Volume 84.0fl Mean Corpuscular Hemoglobin 26.8pg Mean Corpuscular Hemoglobin Concent 31.9g/dl Red Cell Distribution Width 14.1% Platelet Count 13771^3/UL Mean Platelet Volume 11.7fl Neutrophils % 59.3% Lymphocytes % 32.5% Monocytes % 6.8% Eosinophils % 1.0% Basophils % 0.2% Nucleated Red Blood Cells % 0.0/100WBC Neutrophils # 4.910^3/ul Lymphocytes # 2.710^3/ul Monocytes # 0.610^3/ul Eosinophils # 0.110^3/ul Basophils # 0.010^3/ul Nucleated Red Blood Cells # 0.010^3/ul Sodium Level 142mmol/L Potassium Level 3.7mmol/L Chloride Level 105mmol/L Carbon Dioxide Level 28mmol/L Anion Gap 13 Blood Urea Nitrogen 15mg/dl Creatinine 0.64mg/dl Glucose Level 84mg/dl Calcium Level 9.1mg/dl Total Bilirubin 0.2mg/dl Direct Bilirubin 0.00mg/dl Indirect Bilirubin 0.2mg/dl Aspartate Amino Transf (AST/SGOT) 19IU/L Alanine Aminotransferase (ALT/SGPT) 22IU/L Alkaline Phosphatase 83IU/L Total Protein 7.8g/dl Albumin 4.1g/dl Globulin 3.70g/dl Albumin/Globulin Ratio 1.10 Lipase 62U/L Current Medications Medications (Trade) Dose Ordered Sig/Lyric Route PRN Reason Start Time Stop Time Status Last Admin Dose Admin Morphine Sulfate (morphine) 4 mg ONCE STAT IV 04/28/17 23:39 04/28/17 23:41 DC 04/29/17 00:13 Ondansetron HCl (Zofran Inj) 4 mg ONCE STAT IV 04/28/17 23:39 04/28/17 23:41 DC 04/29/17 00:14 Ketorolac Tromethamine (Toradol) 30 mg ONCE STAT IV 04/29/17 01:21 04/29/17 01:22 DC 04/29/17 01:27 DIAGNOSTIC IMAGING REPORT Patient: MARAL RENTERIA : 1990 Age: 26 Sex: F MR #: [id number] DOS: 04/28/17 2339 Ordering MD: RAYN YOUNG PA-C Location: [facility] Room/Bed: PROCEDURE: CT ABDOMEN/PELVIS WITHOUT CONTRAST CLINICAL INDICATION: 26-year-old female with abdominal pain. TECHNIQUE: The study was performed utilizing a GE [employer] VCT 64-slice CT scanner. Direct axial sections were obtained through the abdomen and pelvis without the use of intravenous contrast material. Sagittal and coronal reformations were obtained. One or more of the following dose reduction techniques were utilized: automated exposure control, adjustment of the mA and/ or kV according to patient's size and/or the use of iterative reconstruction technique. DICOM images are available. The images were reviewed on a PACS workstation. CTD/vol = 16.4 mGy; Total Exam DLP = 1021.8 mGy-cm. COMPARISON: CT abdomen/pelvis February 02, 2017. FINDINGS: The lung bases are unremarkable. There is no evidence for significant pleural effusion. The liver has a normal size and contour without focal areas of abnormal density. No intrahepatic nor extrahepatic biliary ductal dilatation is seen. The gallbladder demonstrates no wall thickening nor pericholecystic fluid. No biliary stones are evident. The pancreas is without areas of abnormal attenuation. The spleen is identified and has a normal size without abnormal density. The adrenal glands are unremarkable. The kidneys are without abnormal density. No hydroureteronephrosis nor nephroureterolithiasis is evident. The urinary bladder contains urine. There is a minimal umbilical hernia with an opening of approximately 4 x 3 mm containing fat. The stomach is filled with particular material. There is retained stool within the ascending and transverse colon without obstruction There is no evidence for bowel obstruction. The appendix is at the upper limits of normal measuring 6 mm without surrounding inflammatory changes and without significant interval change. The uterus is unremarkable. There is trace pelvic free fluid. The aortoiliac vessels are without aneurysmal dilatation. The osseous structures are intact. IMPRESSION: 1. Mild retained stool within the proximal colon without obstruction. 2. No CT evidence for appendicitis. 3. Trace pelvic free fluid. .Celso Lowe MD, Date Time Electronically viewed and signed by .Celos Lowe MD, on 04/29/2017 00:53 .M/ CC: RYAN YOUNG PA-C Procedures/MDM This 26-year-old female who presents the emergency department today complaining of right-sided back pain and flank pain that started 2 days ago and gotten worse. On physical exam patient had diffuse right-sided abdominal pain and therefore I did obtain laboratory work as well as imaging. Review of patient's medical records I do see that patient was seen here in January and had a CT abdomen pelvis and pelvic ultrasound for similar complaints however it was located on the other side. Laboratory workup shows no elevated white blood cell count. Her hemoglobin is very mildly decreased. Platelets are within normal limits. Electrolytes are within normal limits. Glucose is within normal limits. Liver enzymes are within normal limits. Lipase is within normal limits. UA is negative for infection Urine test is negative CT abdomen pelvis shows mild retained stool within the proximal colon without obstruction. The appendix is at the upper limits of normal measuring 6 mm without surrounding inflammatory changes and without significant interval change. Uterus is unremarkable. There is trace pelvic free fluid. Gallbladder demonstrates no wall thickening or pericholecystic fluid. There is no biliary stones. There is no nephroureterolithiasis. Previous CT in January showed the appendix at approximately 7 mm. Patient has abdominal pain of uncertain etiology however there is no evidence to suggest acute surgical abdomen. Low suspicion for ovarian torsion, ectopic , tubo-ovarian abscess. Her pain may be related to constipation. I have explained this to her. Given morphine and Zofran here in the emergency department. She stated that her pain had returned and was therefore given Toradol. Patient will be given a prescription for Naprosyn, Tylenol, MiraLAX and Colace for home. She was instructed to return in 8-12 hours for recheck, persistent or worsening symptoms. Patient was asking about pain medication before leaving the emergency department and I explained her that I would be happy to give her 1 pill before she left however I do not feel that giving the patient narcotics is beneficial at this time. Six-point to the patient that if she continued to have persistent pain I be happy to do an ultrasound for her. Patient did endorse that she followed up with her primary care doctor on her last visit and was started on oral contraceptive pills for her ovarian cyst on the left side. Patient stated that she did not wish to have an ultrasound done at this time but return for any persistent or worsening symptoms. She indicated that she does have an appointment on Saturday with her primary care doctor and I have recommended that she follow back up with her secy or request referral to GI specialist given that she has been having frequent abdominal pain. Patient understood. At this time the patient is stable for discharge and outpatient management. Patient should follow up with their PCP in the next 1-2 days. They may return to the emergency department sooner for any persistent or worsening of symptoms. Patient understood and agreed with the plan. Departure Diagnosis: Primary Impression: Abdominal pain Abdominal location: lower abdomen, unspecified Qualified Code: R10.30 - Lower abdominal pain Condition: Fair RYAN YOUNG PA-C Apr 29, 2017 01:51
[2017-04-29] MEDS ORDERED: POLY17PO6 PO (01:54)
[2017-04-29] MEDS ORDERED: ACET500C5 PO (01:54)
[2017-04-29] MEDS ORDERED: NAPR-260 PO (01:54)
[2017-04-29] MEDS ORDERED: ONDA4TAB8 PO (01:54)
[2017-04-29] MEDS ORDERED: DOCU-144 PO (01:55)
== END 2017-04-29 02:35 | disposition home or self-care (01) ==
LOC: E/R 22:24 → FTE 04-29 02:35
DX: R10.30 Lower abdominal pain, unspecified (principal); I10 Essential (primary) hypertension; R10.2 Pelvic and perineal pain
CPT/HCPCS: 36415; 74176; 80053; 81003; 83690; 85025; 96374; 96375; J1885; J2270; J2405; Z7502

== ENCOUNTER 2017-05-06 13:48 | Emergency (ER) | payer MEDICAID ==
[~2017-05-06] VITALS: Ht 167.6 cm; Wt 85.1 kg
[~2017-05-06 13:48] MED LIST changes: +ACET500C5 PO; +DOCU-144 PO; +ONDA4TAB8 PO; +POLY17PO6 PO
[2017-05-06 13:51] VITALS: Ht 167.6 cm; Wt 85.1 kg
[2017-05-06] MEDS ORDERED: ONDANSETRON 4 MG INJ IV STA (14:16)
[2017-05-06] MEDS ORDERED: SOD CHLORIDE 0.9% 1,000 ML IV STA (14:16)
[2017-05-06] MEDS ORDERED: morphine 4 MG/ML VIAL IV STA (14:16)
[2017-05-06 14:56] LABS: BASOPHILS % 0.4 % (0.0-2.0); EOSINOPHILS # 0.1 10^3/ul (0.0-0.5); EOSINOPHILS % 0.6 % (0.0-7.0); HEMATOCRIT 38.1 % (37.0-47.0); HEMOGLOBIN 12.1 g/dl (12.0-16.0); LYMPHOCYTES # 1.9 10^3/ul (0.8-2.9); LYMPHOCYTES % 23.2 % (15.0-51.0); MEAN CORPUSCULAR HEMOGLOBIN 26.7 pg (29.0-33.0); MEAN CORPUSCULAR HGB CONC 31.8 g/dl (32.0-37.0); MEAN CORPUSCULAR VOLUME 83.9 fl (82.0-101.0); MEAN PLATELET VOLUME 11.4 fl (7.4-10.4); MONOCYTE # 0.6 10^3/ul (0.3-0.9); MONOCYTES % 6.6 % (0.0-11.0); NEUTROPHIL # 5.7 10^3/ul (1.6-7.5); PLATELET COUNT 244 10^3/UL (140-415); RED BLOOD COUNT 4.54 10^6/ul (4.20-5.40); RED CELL DISTRIBUTION WIDTH 14.3 % (11.5-14.5); WHITE BLOOD COUNT 8.3 10^3/ul (4.8-10.8)
[2017-05-06] MEDS ORDERED: KETOROLAC 30 MG INJ IV STA (15:08)
[2017-05-06 15:18] LABS: ALBUMIN 4.4 g/dl (3.3-4.9); ALBUMIN/GLOBULIN RATIO 1.22; BILIRUBIN,INDIRECT 0.3 mg/dl (0-1.1); BILIRUBIN,TOTAL 0.3 mg/dl (0.2-1.3); CALCIUM 8.8 mg/dl (8.4-10.2); CREATININE 0.61 mg/dl (0.44-1.00); POTASSIUM 3.6 mmol/L (3.5-5.1)
[2017-05-06 15:42] LABS: ADD UMIC YES; UR ASCORBIC ACID 20 mg/dL (NEGATIVE); UR BILIRUBIN (Dip) NEGATIVE (NEGATIVE); UR BLOOD (Dip) NEGATIVE (NEGATIVE); UR CLARITY SLIGHTLY CLOUDY (CLEAR); UR COLOR YELLOW (YELLOW); UR GLUCOSE (Dip) NEGATIVE (NEGATIVE); UR KETONES (Dip) NEGATIVE (NEGATIVE); UR LEUKOCYTE ESTERASE (Dip) NEGATIVE Leu/ul (NEGATIVE); UR MUCUS MANY /HPF (NONE SEEN); UR NITRITE (Dip) NEGATIVE (NEGATIVE); UR RBC 3 /HPF (0-5); UR SPECIFIC GRAVITY (Dip) 1.029 (1.003-1.030); UR SQUAMOUS EPITHELIAL CELL MODERATE /HPF (FEW); UR TOTAL PROTEIN (Dip) 1+ mg/dl (NEGATIVE); UR UROBILINOGEN (Dip) 1+ mg/dL (NEGATIVE)
--- NOTE | 2017-05-06 16:14 | RADRPT ---
PROCEDURE: US Pelvis. CLINICAL INDICATION: pelvic pain TECHNIQUE: Multiple sonographic images of the pelvis were obtained utilizing a transabdominal and endovaginal technique. The images were reviewed on a PACS workstation. COMPARISON: CT 04/29/2017; US PELVIS 02/01/2017 FINDINGS: The uterus is normal in size with a normal appearance of the myometrium. The uterus measures 7.6 x 4.7 x 5.6 cm. The endometrial stripe is homogeneous in appearance and has the thickness of 17 mm. There is a small Nabothian cyst in the cervix. There are scattered calcifications in the cervix. The ovaries are normal in size and echogenicity. Normal Doppler flow is identified in both ovaries. The right ovary measures 2.8 x 1.6 x 2.4 cm. The left ovary measures 2.4 x 1.1 cm. No free fluid is present within the pelvis. RPTAT: AA IMPRESSION: Slightly thickened endometrium measuring 70 mm. Small scattered calcifications in the cervix. .Riaz Guzman MD, MD Date Time Electronically viewed and signed by .Riaz Guzman MD, MD on 05/06/2017 16:14 .S/
[2017-05-06] MEDS ORDERED: HYDROmorphONE 1 MG/ML SYG IV STA (17:29)
[2017-05-06] MEDS ORDERED: SOD CHLORIDE 0.9% 100 ML ONE (19:08)
[2017-05-06] MEDS ORDERED: IOHEXOL 300MG/ML 150 ML BTL ONE (19:08)
--- NOTE | 2017-05-06 19:48 | RADRPT ---
PROCEDURE: CT abdomen and pelvis with IV contrast. CLINICAL INDICATION: Abdomen pain. TECHNIQUE: CT scan of the abdomen and pelvis was performed on a [address] scanner. The patient is scanned following the uncomplicated IV administration of 100 cc Omnipaque-300. Coronal and sagit hazel reformatted images were obtained from the axial source images. Images were reviewed on a [employer] PACS workstation. DICOM images are available. Total radiation dose: Total CTDIvol: 15.5 mGy. Total DLP: 899 mGy-cm. One or more of the followin g dose reduction techniques were used: automated exposure control, adjustment of the mA and/or kV ac cording to patient size, or use of iterative reconstruction technique. COMPARISON: CT abdomen pelvis, 04/29/2017. FINDINGS: CT abdomen: The lung bases are clear. The heart is not enlarged without pericardial thickening or effusion.. The liver is normal in size and density without focal mass or intrahepatic biliary dilatation. The spleen is normal in size and homogeneous in density. The stomach is partially collapsed but is dionicio sly unremarkable. The pancreas as visualized is normal. The gallbladder is normal and there is no evidence of biliary dilatation. The adrenal glands are symmetrical and normal. The kidneys are symmetrically normal bilaterally. N o renal calculus or obstructive uropathy or mass lesion is seen.. The aorta is normal in caliber. There is no retroperitoneal lymphadenopathy. The stefani hepatis reg ion is clear. The bowel and mesentery, as visualized, are equally unremarkable. CT pelvis: There is minimal free fluid in the cul-de-sac. The appendix is normal in the right lower quadrant. The small bowel loops situated within the pelvis are unremarkable. The female pelvic organs are nor mal. The pelvic sidewalls and inguinal regions are clear. No mass, lymphadenopathy is seen. No ac dao inflammation seen. The urinary bladder is normal. The surrounding osseous structures are unremarkable. No osteolytic or osteoblastic lesion is detect ed. IMPRESSION: 1. Unremarkable CT abdomen pelvis with IV contrast. 2. Minimal free fluid in the cul-de-sac of the pelvis, likely physiologic. RPTAT: GG .Ambrocio Jain MD, MD Date Time Electronically viewed and signed by .Ambrocio Jain MD, on 05/06/2017 19:48 .Y/
[2017-05-06] MEDS ORDERED: DIPHENHYDRAMINE 50 MG INJ IV ONE (20:00)
[2017-05-06] MEDS ORDERED: TRAM50TA2 PO (20:19)
[2017-05-06 20:44] VITALS: BP 120/76; PULSE 72; RESP 16; TEMP 98.7
--- NOTE | 2017-05-06 21:56 | ERD ---
ER Documentation Chief Complaint Chief Complaint ap radiating to back x10 days w/vomitting HPI 26-year-old female patient with a past medical history of hypertension presents to the ED complaining of abdominal pain started with vomiting started 10 days ago. Reports that the pain is predominantly in the right and left lower quadrant and radiates to her back. Patient went to the doctor yesterday and was ordered to have an ultrasound. Patient's last menses was on April 10, 20102016. Reports that the last time she had sexual intercourse was 2 weeks ago and is on control. She is a . Denies any vaginal discharge, dysuria, urgency, frequency. Patient was seen here on April 28, 2017 and had received a CT of the abdomen and pelvis which showed negative for any acute findings of acute abdomen. Patient reports her last pap smear was in January 2017 which was negative. ROS All systems reviewed and are negative except as per history of present illness. Medications Home Meds Active Scripts Tramadol HCl (Tramadol HCl) 50 Mg Tablet, 50 MG PO Q6, #20 TAB Prov:GREGORY PARKS PA-C 05/06/17 Docusate Sodium* (Colace*) 100 Mg Capsule, 100 MG PO TID, #30 CAP Prov:RYAN YOUNG PA-C 04/29/17 Polyethylene Glycol* (Miralax*) 17 Gm Powd.pack, 17 GM PO DAILY, #15 Prov:RYAN YOUNG PA-C 04/29/17 Ondansetron Hcl* (Zofran*) 4 Mg Tablet, 4 MG PO Q6H for NAUSEA AND/OR VOMITING, #30 TAB Prov:RYAN YOUNG PA-C 04/29/17 Acetaminophen* (Tylophen*) 500 Mg Capsule, 1 CAP PO Q6H Y for PAIN AND OR ELEVATED TEMP, #30 CAP Prov:RYAN YOUNG PA-C 04/29/17 Naproxen* (Naprosyn*) 500 Mg Tablet, 500 MG PO BID Y for PAIN AND/OR INFLAMMATION, #30 TAB Prov:RYAN YOUNG PA-C 04/29/17 Hydrocodone/Acetaminophen ([place] 5-325 Tablet) 1 Each Tablet, 1 TAB PO Q6H Y for PAIN, #7 TAB Prov:ANILMOE 02/03/17 Ibuprofen* (Motrin*) 400 Mg Tab, 400 MG PO Q6, #30 TAB Prov:ANIL,MOE 02/03/17 Hydrocodone/Acetaminophen ([place] 5-325 Tablet) 1 Each Tablet, 1 TAB PO Q6H Y for PAIN, #15 TAB Prov:JUAN RUIZ 02/01/17 Dicyclomine Hcl* (Bentyl*) 10 Mg Capsule, 10 MG PO QID for 5 Days, CAP Prov:JUAN RUIZ 02/01/17 Ondansetron Hcl* (Zofran*) 4 Mg Tab, 4 MG PO Q4H Y for NAUSEA AND OR VOMITING, # 15 TAB Prov:JUAN RUIZ 02/01/17 Naproxen* (Naprosyn*) 500 Mg Tablet, 500 MG PO BID Y for PAIN AND/OR INFLAMMATION, #30 TAB Prov:RYAN YOUNG PA-C 04/20/16 Allergies Allergies: Coded Allergies: No Known Allergy (Verified , 05/06/17) PMhx/Soc Medical and Surgical Hx: pt denies Surgical Hx History of Surgery: No Anesthesia Reaction: No Hx Neurological Disorder: No Hx Respiratory Disorders: No Hx Cardiac Disorders: Yes (HTN) Hx Psychiatric Problems: No Hx Miscellaneous Medical Probl: No Hx Alcohol Use: No Hx Substance Use: No Hx Tobacco Use: No Smoking Status: Never smoker Physical Exam Vitals Vital Signs Date Time Temp Pulse Resp B/P Pulse Ox O2 Delivery O2 Flow Rate FiO2 05/06/17 20:44 98.7 72 16 120/76 100 Room Air 05/06/17 13:51 97.9 81 20 135/90 99 Physical Exam Const: [id number]-[id number], well-nourished. In no acute distress. Head: Atraumatic, normocephalic Eyes: Normal Conjunctiva without injection. No purulent discharge. ENT: Normal external ear, nose. Moist oropharynx without tonsillar exudates. Non -erythematous pharynx. Uvula midline. No drooling. No trismus. Neck: No cervical midline tenderness. Full range of motion. No meningismus. No cervical lymphadenopathy. No JVD. Resp: Clear to auscultation bilaterally. No wheezing, rhonchi, rales, or crackles. No accessory muscle use. No retractions. Cardio: Regular rate and rhythm. No murmurs, rubs or gallops. Abd: Soft, generalized tenderness to palpation of the abdomen of the left and right lower quadrant, non distended. Normal bowel sounds. No palpable masses. No rebound tenderness. No guarding. Negative McBurney's point. Negative psoas sign. Negative obturator sign. : Bimanual exam performed with patient's consent. No cervical motion tenderness. No vaginal bleeding noted. No vaginal discharge. Skin: No petechiae or rashes Back: No midline tenderness. No CVA tenderness. Ext: No cyanosis, or edema. Neur: Awake and alert. Normal gait. Normal coordination. Psych: Normal Mood and Affect Result Diagram: 05/06/17 1432 05/06/17 1432 Results 24 hrs Laboratory Tests Test 05/06/17 14:16 05/06/17 14:20 05/06/17 14:32 Serum HCG, Qualitative NEGATIVE Urine Color YELLOW Urine Clarity SLIGHTLY CLOUDY Urine pH 5.0 Urine Specific [place] 1.029 Urine Ketones NEGATIVEmg/dL Urine Nitrite NEGATIVEmg/dL Urine Bilirubin NEGATIVEmg/dL Urine Urobilinogen 1+mg/dL Urine Leukocyte Esterase NEGATIVELeu/ul Urine Microscopic RBC 3/HPF Urine Microscopic WBC 3/HPF Urine Squamous Epithelial Cells MODERATE/HPF Urine Mucus MANY/HPF Urine Hemoglobin NEGATIVEmg/dL Urine Glucose NEGATIVEmg/dL Urine Total Protein 1+mg/dl White Blood Count 8.310^3/ul Red Blood Count 4.5410^6/ul Hemoglobin 12.1g/dl Hematocrit 38.1% Mean Corpuscular Volume 83.9fl Mean Corpuscular Hemoglobin 26.7pg Mean Corpuscular Hemoglobin Concent 31.8g/dl Red Cell Distribution Width 14.3% Platelet Count 06213^3/UL Mean Platelet Volume 11.4fl Neutrophils % 69.0% Lymphocytes % 23.2% Monocytes % 6.6% Eosinophils % 0.6% Basophils % 0.4% Nucleated Red Blood Cells % 0.0/100WBC Neutrophils # 5.710^3/ul Lymphocytes # 1.910^3/ul Monocytes # 0.610^3/ul Eosinophils # 0.110^3/ul Basophils # 0.010^3/ul Nucleated Red Blood Cells # 0.010^3/ul Sodium Level 142mmol/L Potassium Level 3.6mmol/L Chloride Level 104mmol/L Carbon Dioxide Level 26mmol/L Anion Gap 16 Blood Urea Nitrogen 12mg/dl Creatinine 0.61mg/dl Glucose Level 81mg/dl Calcium Level 8.8mg/dl Total Bilirubin 0.3mg/dl Direct Bilirubin 0.00mg/dl Indirect Bilirubin 0.3mg/dl Aspartate Amino Transf (AST/SGOT) 21IU/L Alanine Aminotransferase (ALT/SGPT) 24IU/L Alkaline Phosphatase 87IU/L Total Protein 8.0g/dl Albumin 4.4g/dl Globulin 3.60g/dl Albumin/Globulin Ratio 1.22 Lipase 49U/L Current Medications Medications (Trade) Dose Ordered Sig/Lyric Route PRN Reason Start Time Stop Time Status Last Admin Dose Admin Sodium Chloride (NS) 1,000 ml @ 1,000 mls/hr Q1H STAT IV 05/06/17 14:16 05/06/17 15:15 DC 05/06/17 14:46 Morphine Sulfate (morphine) 4 mg ONCE STAT IV 05/06/17 14:16 05/06/17 14:18 DC 05/06/17 14:46 Ondansetron HCl (Zofran Inj) 4 mg ONCE STAT IV 05/06/17 14:16 05/06/17 14:18 DC 05/06/17 14:46 Ketorolac Tromethamine (Toradol) 30 mg ONCE STAT IV 05/06/17 15:08 05/06/17 15:11 DC 05/06/17 15:25 Hydromorphone HCl (Dilaudid) 1 mg ONCE STAT IV 05/06/17 17:29 05/06/17 17:30 DC 05/06/17 17:37 IV Flush 10 ml 10 ml STK-MED ONCE .ROUTE 05/06/17 19:08 05/06/17 19:09 DC 05/06/17 19:08 Sodium Chloride (NS) 100 ml @ ud STK-MED ONCE .ROUTE 05/06/17 19:08 05/06/17 19:09 DC 05/06/17 19:08 Iohexol (Omnipaque 300mg/ ml) 150 ml STK-MED ONCE .ROUTE 05/06/17 19:08 05/06/17 19:09 DC 05/06/17 19:08 Diphenhydramine HCl (Benadryl) 25 mg ONCE ONCE IV 05/06/17 20:00 05/06/17 20:01 DC 05/06/17 19:55 Procedures/MDM 26-year-old female patient with a past medical history of hypertension, migraines presents to the ED complaining of abdominal pain that radiates to her back. Patient is afebrile and nontoxic-appearing. Patient has normal vital signs. Patient was further worked up with CBC, CMP, lipase, UA. This is with my supervising physician, Dr. Singh who agreed with the management. He stated that since patient still has pain, we can proceed with ordering a CT abdomen and pelvis with contrast. Patient's pain and symptoms have improved after treatment with 1 mg IV Dilaudid, 30 mg IV Toradol, 4 mg IV morphine, 4 mg IV Zofran, 1 L normal saline. CBC: No leukocytosis. No e/o of systemic infection. No e/o anemia. CMP: No e/o severe acidosis, alkalosis, renal failure, diabetic ketoacidosis, liver disease Lipase within normal limits. Urine: No leukocyte esterase, no nitrites, no hematuria. Urine : negative PROCEDURE: CT abdomen and pelvis with IV contrast. CLINICAL INDICATION: Abdomen pain. TECHNIQUE: CT scan of the abdomen and pelvis was performed on a [address] scanner. The patient is scanned following the uncomplicated IV administration of 100 cc Omnipaque-300. Coronal and sagittal reformatted images were obtained from the axial source images. Images were reviewed on a high-resolution PACS workstation. DICOM images are available. Total radiation dose: Total CTDIvol: 15.5 mGy. Total DLP: 899 mGy-cm. One or more of the following dose reduction techniques were used: automated exposure control, adjustment of the mA and/or kV according to patient size, or use of iterative reconstruction technique. COMPARISON: CT abdomen pelvis, 04/29/2017. FINDINGS: CT abdomen: The lung bases are clear. The heart is not enlarged without pericardial thickening or effusion.. The liver is normal in size and density without focal mass or intrahepatic biliary dilatation. The spleen is normal in size and homogeneous in density. The stomach is partially collapsed but is grossly unremarkable. The pancreas as visualized is normal. The gallbladder is normal and there is no evidence of biliary dilatation. The adrenal glands are symmetrical and normal. The kidneys are symmetrically normal bilaterally. No renal calculus or obstructive uropathy or mass lesion is seen.. The aorta is normal in caliber. There is no retroperitoneal lymphadenopathy. The stefani hepatis region is clear. The bowel and mesentery, as visualized, are equally unremarkable. CT pelvis: There is minimal free fluid in the cul-de-sac. The appendix is normal in the right lower quadrant. The small bowel loops situated within the pelvis are unremarkable. The female pelvic organs are normal. The pelvic sidewalls and inguinal regions are clear. No mass, lymphadenopathy is seen. No acute inflammation seen. The urinary bladder is normal. The surrounding osseous structures are unremarkable. No osteolytic or osteoblastic lesion is detected. IMPRESSION: 1. Unremarkable CT abdomen pelvis with IV contrast. 2. Minimal free fluid in the cul-de-sac of the pelvis, likely physiologic. PROCEDURE: US Pelvis. CLINICAL INDICATION: pelvic pain TECHNIQUE: Multiple sonographic images of the pelvis were obtained utilizing a transabdominal and endovaginal technique. The images were reviewed on a PACS workstation. COMPARISON: CT 04/29/2017; US PELVIS 02/01/2017 FINDINGS: The uterus is normal in size with a normal appearance of the myometrium. The uterus measures 7.6 x 4.7 x 5.6 cm. The endometrial stripe is homogeneous in appearance and has the thickness of 17 mm. There is a small Nabothian cyst in the cervix. There are scattered calcifications in the cervix. The ovaries are normal in size and echogenicity. Normal Doppler flow is identified in both ovaries. The right ovary measures 2.8 x 1.6 x 2.4 cm. The left ovary measures 2.4 x 1.1 cm. No free fluid is present within the pelvis. RPTAT: AA IMPRESSION: Slightly thickened endometrium measuring 70 mm. Small scattered calcifications in the cervix. Unspecified etiology for patient's abdominal pain at this time. CT of the abdomen and pelvis shows no evidence of appendicitis. Bimanual exam performed - no cervical motion tenderness. Low suspicion for ectopic , ovarian torsion, gastritis, GERD, peptic ulcer disease, cholecystitis, choledocholithiasis, cholangitis, PID, pancreatitis, appendicitis, bowel obstruction, ileus, volvulus, nephrolithiasis, pyelonephritis, hepatitis, perforated viscus, diverticulitis, strangulated/incarcerated hernia, DKA, acute abdomen, mesenteric ischemia or other emergent conditions. This discussed with my supervising physician, Dr. Singh who agreed with the management and discharge plan. Discharge medications: Tramadol Follow up with primary care physician in 1-2 days for referral to management accounts manager. Instructed patient to return to the ED sooner for any worsening symptoms. Patient's questions were answered. Patient understood and agreed with discharge plan. Patient discharged stable. Departure Diagnosis: Primary Impression: Abdominal pain Abdominal location: unspecified location Qualified Code: R10.9 - Abdominal pain, unspecified abdominal location Condition: Stable Patient Instructions: Abdominal Pain Referrals: [facility] YOU HAVE RECEIVED A MEDICAL SCREENING EXAM AND THE RESULTS INDICATE THAT YOU DO NOT HAVE A CONDITION THAT REQUIRES URGENT TREATMENT IN THE EMERGENCY DEPARTMENT. FURTHER EVALUATION AND TREATMENT OF YOUR CONDITION CAN WAIT UNTIL YOU ARE SEEN IN YOUR DOCTORS OFFICE WITHIN THE NEXT 1-2 DAYS. IT IS YOUR RESPONSIBILITY TO MAKE AN APPOINTMENT FOR FOLOW-UP CARE. IF YOU HAVE A PRIMARY DOCTOR --you should call your primary doctor and schedule an appointment IF YOU DO NOT HAVE A PRIMARY DOCTOR YOU CAN CALL OUR PHYSICIAN REFERRAL HOTLINE AT IF YOU CAN NOT AFFORD TO SEE A PHYSICIAN YOU CAN CHOSE FROM THE FOLLOWING [facility] [address] [facility] [place] [address] [facility]. [facility] [address] [facility] [facility] [address] [facility]. [facility] [address] [facility]. [address] [facility]. [facility] YOU HAVE RECEIVED A MEDICAL SCREENING EXAM AND THE RESULTS INDICATE THAT YOU DO NOT HAVE A CONDITION THAT REQUIRES URGENT TREATMENT IN THE EMERGENCY DEPARTMENT. FURTHER EVALUATION AND TREATMENT OF YOUR CONDITION CAN WAIT UNTIL YOU ARE SEEN IN YOUR DOCTORS OFFICE WITHIN THE NEXT 1-2 DAYS. IT IS YOUR RESPONSIBILITY TO MAKE AN APPOINTMENT FOR FOLOW-UP CARE. IF YOU HAVE A PRIMARY DOCTOR --you should call your primary doctor and schedule and appointment IF YOU DO NOT HAVE A PRIMARY DOCTOR YOU CAN CALL OUR PHYSICIAN REFERRAL HOTLINE AT . IF YOU CAN NOT AFFORD TO SEE A PHYSICIAN YOU CAN CHOSE FROM THE FOLLOWING [facility] INSTITUTIONS: [facility] [address] [place] [address] [facility] [address] [place], [place] [id number] [place] [address] [address] [place] [address] [facility] URGENT CARE/SPECIALTIES Additional Instructions: Visite a hendrix sky loera para un EXAMEN para elayne derivacin a un gastroenter logo. Regrese a estas instalaciones si no se mejora cachorro esperbamos o cachorro le dijimos. GREGORY PARKS PA-C May 06, 2017 21:56
== END 2017-05-06 20:45 | disposition home or self-care (01) ==
LOC: FTE 13:48
DX: R10.84 Generalized abdominal pain (principal); I10 Essential (primary) hypertension; R10.2 Pelvic and perineal pain
CPT/HCPCS: 36415; 74177; 76830; 76856; 80053; 81001; 83690; 84703; 85025; 96374; 96375; J1170; J1200; J1885; J2270; J2405; J7030; Q9967; Z7502; Z7610

== ENCOUNTER 2017-08-28 04:10 | Emergency (ER) | END 2017-08-28 08:55 | disposition home or self-care (01) ==

== ENCOUNTER 2017-11-04 19:51 | Emergency (ER) | END 2017-11-04 23:19 | disposition home or self-care (01) ==

== ENCOUNTER 2018-01-01 11:16 | Emergency (ER) | END 2018-01-01 14:07 | disposition home or self-care (01) ==

== ENCOUNTER 2018-01-20 15:20 | Emergency (ER) | END 2018-01-20 18:02 | disposition home or self-care (01) ==

== ENCOUNTER 2018-01-31 23:00 | Emergency (ER) | END 2018-02-01 01:30 | disposition home or self-care (01) ==

== ENCOUNTER 2018-04-13 13:44 | Emergency (ER) | END 2018-04-13 15:24 | disposition home or self-care (01) ==